=== PATIENT | female | born 1985 | race Caucasian/White ===

== ENCOUNTER 2016-08-26 14:40 | Emergency (ER) | payer MEDICAID ==
[2016-08-26] MEDS ORDERED: TRAMADOL 50 MG TAB ONE (15:12)
== END 2016-08-26 16:18 | disposition home or self-care (01) ==
LOC: FASTR 14:40
DX: R30.0 Dysuria (principal); K08.89 Other specified disorders of teeth and supporting structures; F17.210 Nicotine dependence, cigarettes, uncomplicated; Z91.040 Latex allergy status
CPT/HCPCS: 81001